=== PATIENT | female | born 1995 | race Caucasian/White ===

== ENCOUNTER 2018-12-18 23:28 | Inpatient (IN) | payer MEDICAID ==
[~2018-12-18] VITALS: Ht 172.7 cm; Wt 113.9 kg
--- NOTE | 2018-12-18 23:40 | NUR ---
ANTHONY LARKIN presented to unit via wheelchiar from ED, accompanied by family, with c/o FLUID LEAKAGE. ANTHONY LARKIN weighed, gowned, voided, and to bed. EFHM and TOCO applied, VS taken. ANTHONY LARKIN oriented to bed controls, call light, TV, heat, and A/C controls.
[2018-12-18 23:53] VITALS: BP 119/71
--- NOTE | 2018-12-18 23:53 | NUR ---
Pt arrived on unit with c/o SROM, SVE 4 cm 60% no change from office. Positive amnio test noted and head well applied. Pt denies pain at this time. Admission questions answered and pt resting on EFM at this time.
[2018-12-19] VITALS (47 sets, daily range): BP systolic 89–135; BP diastolic 41–86
--- NOTE | 2018-12-19 00:02 | NUR ---
This RN called Dr Schaffer to notify of patient arrival and SROM. Notified of sve, fhr variability, pain rating of 0/10 and contraction pattern. New orders for admit received.
[2018-12-19] MEDS ORDERED: OXYTOCIN/NORMAL SALINE 500 ML IV SCH ×2 (00:10→12:30)
[2018-12-19] MEDS ORDERED: MINERAL OIL CONCENTRATE 99.9% 15 ML UDC TOP PRN (00:15)
[2018-12-19 01:11] LABS: BASOPHILS % (AUTO) 0 % (0-10); EOSINOPHILS % (AUTO) 0 % (0-10); HEMATOCRIT 33 % (35-52); HEMOGLOBIN 10.8 G/DL (11.5-16.0); LYMPHOCYTES # (AUTO) 2.5 X 10^3 (1.0-4.0); LYMPHOCYTES % (AUTO) 25 % (12-44); MEAN CORPUSCULAR HEMOGLOBIN 28 PG (25-34); MEAN CORPUSCULAR HGB CONC 33 G/DL (32-36); MEAN CORPUSCULAR VOLUME 86 FL (80-99); MEAN PLATELET VOLUME 12.5 FL (7.4-10.4); MONOCYTES # (AUTO) 0.7 X 10^3 (0.0-1.0); MONOCYTES % (AUTO) 7 % (0-12); NEUTROPHILS # (AUTO) 6.8 X 10^3 (1.8-7.8); NEUTROPHILS % (AUTO) 68 % (42-75); PLATELET COUNT 223 10^3/uL (130-400); RED CELL DISTRIBUTION WIDTH 15.6 % (10.0-14.5); WHITE BLOOD COUNT 9.9 10^3/uL (4.3-11.0)
[2018-12-19] MEDS: D5 LR IV SOLUTION 1,000 ML IV SCH ×2 (02:25→12:00)
[2018-12-19] MEDS ORDERED: SERT100T8 PO (02:26)
[2018-12-19] MEDS ORDERED: PREN1TAB79 PO (02:26)
--- OUTSIDE RECORDS SUMMARY | 2018-12-19 02:43 | XMS REPORT | Continuity of Care Document ---
Author Author [facility] Address Unknown Phone Unavailable Allergies There is no data. Medications Medication Packaging Start Date Stop Date Route Dosage Sig RHO D IMMUNE GLOBULIN 1500 UNIT/2ML IJ SOSY 09/30/2015 Intramuscular 300 ONCE OXYTOCIN 30 UNITS IN LR 1000 ML OMNICELL 12/27/2015 Intravenous 30 CONTINUOUS PRN TERBUTALINE SULFATE 1 MG/ML IJ SOLN 12/27/2015 Subcutaneous 0.25 ONCE PRN ALUM T MAG HYDROXIDE-SIMETH 200-200-20 MG/5ML PO SUSP 12/27/2015 Oral 30 EVERY 4 HOURS PRN ENEMA 7-19 GM/118ML RE ENEM 12/26 Rectal ONCE PRN LACTATED RINGERS IV BOLUS 201512/27/2015 Intravenous 500 BOLUS NALOXONE HCL 0.4 MG/ML IJ SOLN Intravenous 0.1 PRN METOCLOPRAMIDE HCL 5 MG/ML IJ SOLN 12/27/2015 Intravenous 10 EVERY 3 HOURS PRN PROMETHAZINE HCL 25 MG RE SUPP Rectal 25 EVERY 6 HOURS PRN DIPHENHYDRAMINE HCL 50 MG/ML IJ SOLN 12/27/2015 Intravenous 25 EVERY 6 HOURS PRN DIPHENHYDRAMINE HCL 25 MG PO CAPS 12/27/2015 Oral 25 EVERY 6 HOURS PRN BUPIVACAINE HCL (PF) 0.25 % IJ SOLN 12/27/2015 Epidural PRN BUPIVACAINE HCL (PF) 0.25 % IJ SOLN 12/27/2015 Epidural PRN ACETAMINOPHEN 325 MG PO TABS 04/2016 Oral 650 EVERY 4 HOURS PRN DIPHENHYDRAMINE HCL 25 MG PO CAPS 12/27/2015 Oral 25 EVERY 6 HOURS PRN OXYTOCIN 30 UNITS IN LR 1000 ML OMNICELL 12/27/[address] MITCHELL NIPPLE OINTMENT 2015 Topical PRN LANOLIN EX OINT 12/27/2015 Topical PRN HEMORRHOIDAL HYGIENE 50 % EX PAD 12/27/2015 Topical PRN MISOPROSTOL 200 MCG PO TABS 12/26 Rectal 400 ONCE PRN PRAMOXINE HCL 1 % RE FOAM 2015 Rectal 1 EVERY 6 HOURS PRN ENEMA 7-19 GM/118ML RE ENEM 12/26 Rectal DAILY PRN ONDANSETRON HCL 4 MG/2ML IJ SOLN 12/27/2015 Intravenous 4 EVERY 6 HOURS PRN HYDROCORTISONE ACETATE 25 MG RE SUPP 12/27/2015 Rectal 25 EVERY 6 HOURS PRN IBUPROFEN 400 MG PO TABS 2015 Oral 400 EVERY 4 HOURS PRN ONDANSETRON 4 MG PO TBDP 2015 Oral 4 EVERY 6 HOURS PRN MAGNESIUM HYDROXIDE 400 MG/5ML PO SUSP 12/27/2015 Oral 30 DAILY PRN PRAMOXINE-HC 1-1 % EX FOAM 2015 Topical PRN PLUS 27-1 MG PO TABS 04/2016 Oral 1 DAILY FERROUS SULFATE 325 (65 FE) MG PO TABS 12/27/2015 Oral 325 2 TIMES DAILY WITH MEALS DOCUSATE SODIUM 100 MG PO CAPS Oral 100 2 TIMES DAILY Problems Date Dx Coded Attending Type Code Diagnosis Diagnosed By 08/24/2015 V 441 Routine OB SURAJ KAYE 08/24/2015 V Z34.92 Encounter for supervision of normal , unspecified, second trimester SURAJ KAYE 09/15/2015 SURAJ KAYE V 441 Routine OB SURAJ KAYE 09/30/2015 SURAJ KAYE V 441 Routine OB MIKKI, SURAJ 10/29/2015 SURAJ KAYE V 441 Routine OB SURAJ KAYE 11/11/2015 V O36.0131 Maternal care for anti-d (rh) antibodies, third trimester, fetus 1 11/11/2015 V Z34.93 Encounter for supervision of normal , unspecified, third trimester 11/11/2015 V V22.2 state , incidental 11/11/2015 V V22.2 state , incidental 11/11/2015 V V22.1 Supervision of other normal 12/01/2015 V O36.5930 Maternal care for other known or suspected poor growth, third trimester, not applicable or unspecified 12/29/2015 SURAJ KAYE V [id number] Contractions SURAJ KAYE 12/29/2015 SURAJ KAYE V [id number] Rupture of Membranes SURAJ KAYE 12/29/2015 SURAJ KAYE P [id number] Reserved for concepts with insufficient information to code with codable children KAYE, SURAJ 12/29/2015 SURAJ KAYE V Z33.1 state, incidental SURAJ KAYE 07/14/2016 V V22.1 Supervision of other normal Procedures Code Description Performed By Performed On [id number] INFLUENZA IIV4 PFREE 08/24/2015 [id number] GEST. GLUCOSE SCREEN 11/11/2015 VTR762 ANTIBODY SCREEN 11/11/2015 VUJ533 CBC WITHOUT DIFFERENTIAL 11/11/2015 [id number] PAP, LIQUID-BASED 11/11/2015 TNQ6099 NEISSERIA GONORRHOEAE AMPLIFIED PROBE 11/11/2015 AUC8063 PROFILE-WITH HEPATITIS 11/11/2015 ENI5049 TYPE AND SCREEN 11/11/2015 TTA141 URINE CULTURE 11/11/2015 YYN299 CHLAMYDIA TRACHOMATIS AMPLIFIED PROBE 11/11/2015 IMU740 HIV-1 AND HIV-2 ANTIBODIES 11/11/2015 LAB82 GLUCOSE, RANDOM 11/11/2015 MVK1247 ALPHA-FETOPROTEIN TETRA PROFILE 11/11/2015 [id number] ALPHA-FETOPROTEIN TETRA PROFILE 07/14/2016 QUH8659 PAP, LIQUID-BASED 07/14/2016 PAY3879 NEISSERIA GONORRHOEAE AMPLIFIED PROBE 07/14/2016 [id number] PROFILE-WITH HEPATITIS 07/14/2016 DZM2436 TYPE AND SCREEN 07/14/2016 UNN415 URINE CULTURE 07/14/2016 RDB479 CHLAMYDIA TRACHOMATIS AMPLIFIED PROBE 07/14/2016 FHK573 HIV-1 AND HIV-2 ANTIBODIES 07/14/2016 LAB82 GLUCOSE, RANDOM 07/14/2016 [id number] ALPHA-FETOPROTEIN TETRA PROFILE 07/14/2016 Results Test Result Range CBC WITHOUT DIFFERENTIAL - 09/30/15 11:21 HEMATOCRIT 38.9 % 34.9-44.5 HEMOGLOBIN 12.8 g/dL 12.0-15.5 MEAN CORPUSCULAR HEMOGLOBIN 29.4 pg 26.0-34.0 MEAN CORPUSCULAR HEMOGLOBIN CONC 32.8 g/dL 31.0-37.0 MEAN CORPUSCULAR VOLUME 89.8 fL 81.6-98.3 PLATELET COUNT 270 10E9/L 150-450 RED BLOOD CELL COUNT 4.34 10E12/L 3.90-5.03 RED CELL DISTRIBUTION WIDTH 14.7 % 11.9-15.5 [id number] 12.9 10E9/L 3.5-10.5 GEST. GLUCOSE SCREEN - 09/30/15 11:21 GEST. GLUCOSE SCREEN 54 mg/dL <=139 ANTIBODY SCREEN - 09/30/15 11:21 ANTIBODY SCREEN NEG GROUP B BETA STREP SCREEN - 11/26/15 11:25 [id number] Negative CBC WITHOUT DIFFERENTIAL - 12/27/15 04:55 HEMATOCRIT 36.5 % 34.9-44.5 HEMOGLOBIN 12.0 g/dL 12.0-15.5 MEAN CORPUSCULAR HEMOGLOBIN 28.9 pg 26.0-34.0 MEAN CORPUSCULAR HEMOGLOBIN CONC 32.8 g/dL 31.0-37.0 MEAN CORPUSCULAR VOLUME 88.1 fL 81.6-98.3 PLATELET COUNT 225 10E9/L 150-450 RED BLOOD CELL COUNT 4.14 10E12/L 3.90-5.03 RED CELL DISTRIBUTION WIDTH 15.0 % 11.9-15.5 [id number] 11.7 10E9/L 3.5-10.5 ABO/RH - 12/27/15 04:55 ABORH A NEG RHOPHYLAC IV - VIAL ONLY, 1500IU - 12/27/15 20:48 RHOPHYLAC IV - VIAL ONLY, 1500IU [id number] 10/28/17 issued 1 VIAL 12/27/15 22:17 Encounters ACCT No. Visit Date/Time Discharge Status Pt. Type Provider Facility Loc./Unit Complaint [id number] 12/27/2015 03:42:00 12/29/2015 19:03:00 DIS Inpatient SURAJ KAYE [facility] [id number] 11/28/2015 07:26:04 Document Registration [id number] 09/30/2015 15:36:39 Document Registration [id number] 09/30/2015 11:37:42 Document Registration [id number] 06/24/2015 07:51:29 Document Registration [id number] 12/17/2018 11:15:00 [facility] [id number] 12/20/2015 12:43:28 12/20/2015 23:59:59 CLS Out[facility] [id number] 12/20/2015 12:43:09 12/20/2015 23:59:59 CLS Outpatient [place] [facility] [id number] 12/17/2015 09:43:31 12/17/2015 23:59:59 CLS Outpatient SURAJ KAYE [place] [facility] [id number] 12/10/2015 10:26:48 12/10/2015 23:59:59 [facility] Outpatient SURAJ KAYE [place] [facility] [id number] 12/03/2015 09:57:38 12/03/2015 23:59:59 [facility] Outpatient FAY SINGH [place] [facility] [id number] 11/26/2015 15:23:46 11/26/2015 23:59:59 [facility] Outpatient [place] [facility] [id number] 11/26/2015 10:55:13 11/26/2015 23:59:59 [facility] Outpatient SURAJ KAYE [place] [facility] [id number] 11/26/2015 10:54:51 11/26/2015 23:59:59 [facility] Outpatient [place] [facility] [id number] 11/12/2015 09:57:42 11/12/2015 23:59:59 [facility] Outpatient SURAJ KAYE [place] [facility] [id number] 10/29/2015 10:43:52 10/29/2015 23:59:59 [facility] Outpatient SURAJ KAYE [place] [facility] [id number] 09/30/2015 10:14:37 09/30/2015 23:59:59 CLS Outpatient [place] [facility] [id number] 09/30/2015 10:13:11 09/30/2015 23:59:59 [facility] Outpatient SURAJ KAYE [place] [facility] [id number] 09/15/2015 08:18:08 09/15/2015 23:59:59 [facility] Outpatient SURAJ KAYE [place] [facility] [id number] 08/18/2015 09:29:52 Document Registration [id number] 07/21/2015 10:26:23 Document Registration [id number] 06/23/2015 09:48:54 Document Registration
[2018-12-19] MEDS ORDERED: CATHETER FLUSH 10 ML SYR IV SCH ×2 (06:00→14:00)
[2018-12-19] MEDS ORDERED: LACTATED RINGERS 1,000 ML IV ONE ×3 (06:48→08:14)
[2018-12-19] MEDS ORDERED: FLU QUADRIvalent (5+ YOA) 2018-2019 (AFLURIA) 0.5 ML IM ONE (07:00)
--- NOTE | 2018-12-19 07:20 | NUR ---
THIS RN INTRODUCES SELF TO PT AT THIS TIME. PT RATING PAIN 8/10, EPIDURAL LR BOLUS ALREADY STARTED FROM YOU[employer] TEACHER. THIS RN WILL CALL ANESTHESIA FOR EPIDURAL PLACEMENT. CALL LIGHT WITHIN REACH.
[2018-12-19] MEDS ORDERED: SUFENTA 0.6MCG/ML BUPIVA 0.125 100 ML ONE (07:22)
[2018-12-19] MEDS ORDERED: fentaNYL INJECTION 100 MCG/2 ML AMP ONE (07:31)
[2018-12-19] MEDS ORDERED: BUPIVACAINE 0.25% 30 ML (SENSORCAINE) VIAL ONE (07:31)
--- NOTE | 2018-12-19 07:37 | NUR ---
DR AMEZQUITA CALLED FOR UPDATE PT REPORT. THIS RN REPORTS PT RATING PAIN 8/10, ANESTHESIA HERE NOW FOR EPIDURAL PLACEMENT. DR AMEZQUITA WILL HEAD THIS WAY TO HOSP[facility] FROM [place], [facility]. RN REPORTS LATEST SVE BY [employer] MARKET[employer] INTERN AT 0600
[2018-12-19] MEDS ORDERED: LIDOCAINE PF 2% 5 ML (XYLOCAINE) VIAL ONE (07:40)
[2018-12-19] MEDS ORDERED: EPIDURAL (SUFENTA 0.6MCG/ML BUPIVA 0.125%) 100 ML BAG EPI PRN (08:15)
[2018-12-19] MEDS ORDERED: ONDANSETRON 4 MG/2 ML (SDV) Z0FRAN IV PRN (08:15)
[2018-12-19] MEDS ORDERED: NALOXONE 0.4 MG/ML 1 ML (NARCAN) VIAL IV PRN (08:15)
--- NOTE | 2018-12-19 08:23 | History & Physical-OB ---
OB - Chief Complaint & HPI Date/Time Date of Admission: Date of Admission: Dec 19, 2018 at 00:05 Date seen by a Provider: Dec 19, 2018 Time Seen by a Provider: 08:21 Chief Complaint/History OB-Reason for Admission/Chief: Rupture of Membranes Hx : 2 Hx Para: 1 Expected Date of Delivery: Dec 26, 2018 Gestational Age in Weeks: 39 Gestational Age in Days: 0 Admission Nurse Assessment Rev: Yes Allergies and Home Medications Allergies Coded Allergies: No Known Drug Allergies (Unverified , 12/18/18) Home Medications Vit W-Ca,Fe,FA(<1 mg) 1 Each Tablet, 1 EACH PO DAILY, (Reported) Sertraline HCl 100 Mg Tablet, 100 MG PO DAILY, (Reported) Patient Home Medication List Home Medication List Reviewed: Yes OB - History Hx of Present Care: Yes Ultrasounds: Normal mid trimester US Obstetrical Complications: None Medical Complications: None Patient Past Medical History none Social History/Family History Alcohol Use: Denies Use Recreational Drug Use: No OB - Admission Exam Physical Exam Vitals: Vital Signs 12/19/18 12/19/18 05:15 07:00 Temp 97.6 Pulse 80 Resp 18 B/P (MAP) 115/79 (91) O2 Delivery Room Air HEENT: NCAT Heart: Rhythm Normal Lungs: Clear Abdomen: Gravid Extremities: Normal Cervical Dilatation: 8cm Effacement: 100% Station: -2 Membranes: Ruptured Amniotic Fluid: Clear Heart Rate: 130's Accelerations: Accelerations Present Decelerations: Variable Decelerations Short Term Variability: Present Degreasing Solution Reclaimer Variability: Average (6-25) Contractions on Admission: < 5 Minutes Apart Intensity: Moderate Labs Laboratory Tests Test 12/19/18 01:03 Range/Units White Blood Count 9.9 4.3-11.0 10^3/uL Red Blood Count 3.80 L 4.35-5.85 10^6/uL Hemoglobin 10.8 L 11.5-16.0 G/DL Hematocrit 33 L 35-52 % Mean Corpuscular Volume 86 80-99 FL Mean Corpuscular Hemoglobin 28 25-34 PG Mean Corpuscular Hemoglobin Concent 33 32-36 G/DL Red Cell Distribution Width 15.6 H 10.0-14.5 % Platelet Count 223 130-400 10^3/uL Mean Platelet Volume 12.5 H 7.4-10.4 FL Neutrophils (%) (Auto) 68 42-75 % Lymphocytes (%) (Auto) 25 12-44 % Monocytes (%) (Auto) 7 0-12 % Eosinophils (%) (Auto) 0 0-10 % Basophils (%) (Auto) 0 0-10 % Neutrophils # (Auto) 6.8 1.8-7.8 X 10^3 Lymphocytes # (Auto) 2.5 1.0-4.0 X 10^3 Monocytes # (Auto) 0.7 0.0-1.0 X 10^3 Eosinophils # (Auto) 0.0 0.0-0.3 10^3/uL Basophils # (Auto) 0.0 0.0-0.1 10^3/uL OB - Assessment/Plan/Diagnosis Assessment Assessment: active labor Admission Dx Normal labor Admission Status: Inpatient Order (span 2 midnights) Reason for Inpatient Admission: Normal labor Plan Plan: Expectant Management Induction Method: per Pitocin Protocol Copy Copies To 1: LAWRENCE AMEZQUITA MD, KATRINA M MD Dec 19, 2018 08:23
--- NOTE | 2018-12-19 11:15 | NUR ---
1101 HEAD DELIVERY 1102 SPONTANEOUS VAGINAL DELIVERY OF 39WK FEMALE BY DR AMEZQUITA. NO LACERATIONS. 1103: CORD CLAMPED AND CUT 1107: PLACENTA SPONTANEOUSLY DELIVERED 1115: RECOVERY PERIOD BEGINS. VSS. FUNDUS FIRM, MIDLINE, LEVEL WITH UMBILICUS, LIGHT BLEEDING. PT DENIES PAIN OR NEEDS AT THIS TIME. CALL LIGHT WITHIN REACH. 1130: VSS. FUNDUS FIRM, MIDLINE, LEVEL WITH UMBILICUS, LIGHT BLEEDING. PT DENIES PAIN OR NEEDS AT THIS TIME. FAMILY AT BEDSIDE. PT . CALL LIGHT WITHIN REACH. 1145: VSS. FUNDUS FIRM, MIDLINE, LEVEL WITH UMBILICUS, LIGHT BLEEDING. PT DENIES PAIN OR NEEDS AT THIS TIME. PT . FAMILY AT BEDSIDE. CALL LIGHT WITHIN REACH. 1200: VSS. FUNDUS FIRM, MIDLINE, LEVEL WITH UMBILICUS, LIGHT BLEEDING. FAMILY AND VISITORS AT BEDSIDE. PT DENIES PAIN OR NEEDS AT THIS TIME. CALL LIGHT WITHIN REACH. 1215: VSS. FUNDUS FIRM, MIDLINE, LEVEL WITH UMBILICUS, LIGHT BLEEDING. FAMILY AND VISITORS AT BEDSIDE. PT DENIES PAIN OR NEEDS AT THIS TIME. CALL LIGHT WITHIN REACH. RECOVERY PERIOD ENDS. PT STILL UNABLE TO SHOE CLEANER/ FEEL RIGHT LEG. PT WILL REMAIN IN DELIVERY ROOM UNTIL ABLE TO FEEL RIGHT LEG AND LIFT OFF OF THE BED WITHOUT DIFFICULTY. PERICARE BY THIS RN.
--- NOTE | 2018-12-19 11:22 | OB Labor & Delivery Record ---
Vag Delivery Note Vag Delivery Note Date of Delivery: 12/19/18 Preoperative Diagnosis: Germania Horne is a (23 /Para 2 / 1,Gestational Age (wks)39with [SROM] Postoperative Diagnosis: Same Surgeon: LAWRENCE AMEZQUITA Traffic Control Signaler: [none] Anesthesia: [epidural] Delivery Type: [] Findings: [] Viable [female] infant, apgars [], weight [] Lacerations: Intact placenta with 3 vessel cord. No nuchal cord, body cord or shoulder dystocia Estimated Blood Loss: [250] ml Complications: None Condition: Stable Description of Procedure: The patient is a 23 year old female who presented [with SROM]. She was admitted and informed consent was obtained. Her labor course was remarkable for [ augmentation with pitocin] She progressed to complete dilatation and began to push. She was then set up for delivery. The 's head was delivered atraumatically in the [OA] position. The shoulders and remainder of the infant' s body were then delivered without difficulty. Upon delivery, the head was held below the level of the perineum and the mouth and nares were bulb suctioned. The cord was doubly clamped and cut after 60 seconds and placed on maternal abdomen. An intact placenta with 3-vessel cord delivered via [place] and there was found to be minimal bleeding.~ Vigorous fundal massage was performed and the fundus was found to be firm. IV oxytocin was given. Examination of the vagina and perineum revealed no lacerations. Following the repair, sponge, instrument and needle counts were correct. Mom and baby were both in stable condition in the labor suite. Vitals - Labs Vital Signs - I&O Vital Signs Date Time Temp Pulse Resp B/P (MAP) Pulse Ox O2 Delivery O2 Flow Rate FiO2 12/19/18 10:30 86 122/63 (82) Room Air 12/19/18 10:15 74 112/60 (77) Room Air 12/19/18 10:00 73 128/58 (81) Room Air 12/19/18 09:45 98.4 71 89/41 (57) Room Air 12/19/18 09:30 78 96/46 (63) Room Air 12/19/18 09:15 80 94/44 (61) Room Air 12/19/18 09:00 108 18 120/58 (78) 100 Room Air 12/19/18 08:45 98.2 90 118/69 (85) 100 Room Air 12/19/18 08:30 94 132/60 (84) 100 Room Air 12/19/18 08:15 83 121/65 (83) 100 Room Air 12/19/18 08:00 82 130/73 (92) 100 Room Air 12/19/18 07:45 71 132/79 (96) 100 Room Air 12/19/18 07:30 98.0 68 20 119/70 (86) Room Air 12/19/18 07:00 80 18 115/79 (91) Room Air 12/19/18 06:45 65 18 121/81 (94) Room Air 12/19/18 06:30 62 18 121/86 (98) Room Air 12/19/18 06:15 85 18 119/72 (88) Room Air 12/19/18 06:00 73 18 119/65 (83) Room Air 12/19/18 05:45 69 18 111/70 (84) Room Air 12/19/18 05:30 77 18 124/82 (96) Room Air 12/19/18 05:15 97.6 88 18 120/75 (90) Room Air 12/19/18 05:00 81 18 116/62 (80) Room Air 12/19/18 04:45 77 18 117/64 (81) Room Air 12/19/18 04:30 68 18 119/75 (90) Room Air 12/19/18 04:15 78 18 118/54 (75) Room Air 12/19/18 04:00 77 18 111/56 (74) Room Air 12/19/18 03:45 86 18 110/61 (77) Room Air 12/19/18 03:30 91 18 115/64 (81) Room Air 12/19/18 03:15 70 18 114/65 (81) Room Air 12/19/18 03:00 71 18 118/72 (87) Room Air 12/19/18 02:45 71 18 122/75 (91) Room Air 12/19/18 02:30 97.4 78 18 121/72 (88) Room Air 12/18/18 23:53 98.1 93 18 119/71 (87) Labs Laboratory Tests 12/19/18 01:03: White Blood Count 9.9, Red Blood Count 3.80L, Hemoglobin 10.8L, Hematocrit 33L, Mean Corpuscular Volume 86, Mean Corpuscular Hemoglobin 28, Mean Corpuscular Hemoglobin Concent 33, Red Cell Distribution Width 15.6H, Platelet Count 223, Mean Platelet Volume 12.5H, Neutrophils (%) (Auto) 68, Lymphocytes (%) (Auto) 25 , Monocytes (%) (Auto) 7, Eosinophils (%) (Auto) 0, Basophils (%) (Auto) 0, Neutrophils # (Auto) 6.8, Lymphocytes # (Auto) 2.5, Monocytes # (Auto) 0.7, Eosinophils # (Auto) 0.0, Basophils # (Auto) 0.0 LAWRENCE AMEZQUITA MD Dec 19, 2018 11:22
[2018-12-19] MEDS ORDERED: WITCH HAZEL(TUCKS) 40 EA JAR TOP PRN (12:30)
[2018-12-19] MEDS ORDERED: BENZOCAINE/MENTHOL (DERMOPLAST) 56 ML CAN TP PRN (12:30)
[2018-12-19] MEDS ORDERED: TETANUS,DIPTH,PERTUSS P/F (BOOSTRIX) 0.5 ML VIAL IM ONE (12:30)
[2018-12-19] MEDS ORDERED: MEASLES,MUMPS,RUBELLA 1 EA INJ SQ ONE (12:30)
[2018-12-19] MEDS: IBUPROFEN 600 MG (MOTRIN) TAB PO SCH ×2 (12:43→18:33)
--- NOTE | 2018-12-19 16:07 | NUR ---
PT IN BED, VOICES THAT SHE'S TIRED. VS OBTAINED. NO NEEDS VOICED, PLANNING TO LET PT REST. CALL LIGHT WITHIN REACH.
--- NOTE | 2018-12-19 18:33 | NUR ---
PT IN BED. VISITORS TO BEDSIDE. ROUTINE MOTRIN GIVEN PO; SEE EMAR FOR FURTHER. FRESH ICE WATER PROVIDED. PT DENIES ANY NEEDS AT THIS TIME.
[2018-12-20] MEDS: IBUPROFEN 600 MG (MOTRIN) TAB PO SCH ×3 (00:29→12:24)
[2018-12-20 02:00] VITALS: BP 119/56
[2018-12-20 05:39] VITALS: BP 128/70
[2018-12-20 06:40] LABS: BASOPHILS % (AUTO) 0 % (0-10); EOSINOPHILS # (AUTO) 0.1 10^3/uL (0.0-0.3); EOSINOPHILS % (AUTO) 1 % (0-10); HEMATOCRIT 32 % (35-52); LYMPHOCYTES # (AUTO) 2.2 X 10^3 (1.0-4.0); LYMPHOCYTES % (AUTO) 23 % (12-44); MEAN CORPUSCULAR HEMOGLOBIN 28 PG (25-34); MEAN CORPUSCULAR HGB CONC 32 G/DL (32-36); MEAN CORPUSCULAR VOLUME 89 FL (80-99); MONOCYTES # (AUTO) 0.6 X 10^3 (0.0-1.0); MONOCYTES % (AUTO) 7 % (0-12); NEUTROPHILS # (AUTO) 6.6 X 10^3 (1.8-7.8); NEUTROPHILS % (AUTO) 69 % (42-75); PLATELET COUNT 184 10^3/uL (130-400); RED CELL DISTRIBUTION WIDTH 15.5 % (10.0-14.5); WHITE BLOOD COUNT 9.5 10^3/uL (4.3-11.0)
--- NOTE | 2018-12-20 07:48 | Anesthesia-Regional Post-Op ---
Regional Patient Condition Mental Status: Alert, Oriented x3 Circulation: Same as Pre-Op Headache: Absent Sensation: Full Recovery Motor Block: Absent Post Op Complications Complications None Follow Up Care/Instructions Patient Instructions None needed. Anesthesia/Patient Condition Patient is doing well, no complaints, stable vital signs, no apparent adverse anesthesia problems. No complications reported per nursing. MARGAUX MOCTEZUMA CRNA Dec 20, 2018 07:48
--- NOTE | 2018-12-20 08:30 | NUR ---
PT HOLDING INFANT, UP IN ROOM. DENIES ANY NEEDS AT THIS TIME. WILL RETURN LATER FOR ASSESSMENT.
--- NOTE | 2018-12-20 09:10 | NUR ---
DR. CRUMP TO PT'S BEDSIDE.
--- NOTE | 2018-12-20 09:27 | NUR ---
PT IN BED, APPLYING LOTION TO INFANT IN ATTEMPT TO WAKE UP TO FEED. CONTINUES TO DENY ANY NEEDS. POC DISCUSSED WITH PT AND S/O; UNDERSTANDING VERBALIZED. CALL LIGHT WITHIN REACH.
--- NOTE | 2018-12-20 11:33 | NUR ---
PT IN THE CHAIR, HOLDING . FAMILY AT THE BEDSIDE. DENIES ANY NEEDS AT THIS TIME.
[2018-12-20] MEDS ORDERED: IBUP-844 PO (11:48)
--- NOTE | 2018-12-20 11:49 | Discharge Instructions ---
Discharge Inst-Women's Serv Depart Medications New, Converted or Re-Newed RX: Other (may take over the counter) New Medications: Ibuprofen (Ibu) 600 Mg Tablet 600 MG PO Q6H PRN for CRAMPS, #90 TAB 0 Refills Continued Medications: Vit W-Ca,Fe,FA(<1 mg) ( Vitamins) 1 Each Tablet 1 EACH PO DAILY, TAB Sertraline HCl (Sertraline HCl) 100 Mg Tablet 100 MG PO DAILY, TAB Follow Up/Instructions Goal/Follow Up: Follow up with Dr. Amezquita in 6 weeks. Activity Activity: Activity as Tolerated Driving Instructions: You May Drive Nothing Inside Vagina: No Douching, No [place], No Tampons Diet Discharge Diet: No Restrictions Symptoms to Report to : Bleeding Excessive, Pain Increased, Fever Over 101 Degrees F, Vaginal Bleeding Increase, Vaginal Discharge Foul, Questions/Concerns , Shortness of Breath For Any Problems or Questions: Contact Your Physician Copies To 1: LAWRENCE AMEZQUITA MD, LINDA K DO Dec 20, 2018 11:47
--- NOTE | 2018-12-20 11:52 | Discharge Summary ---
Diagnosis/Chief Complaint Date of Admission Dec 19, 2018 at 00:05 Date of Discharge Dec 20, 2018 Admission Diagnosis Admission Diagnosis 39 week SROM, CARMINA Discharge Diagnosis s/p at 39 wk Discharge Summary-OBS Procedures None. Discharge Physical Examination Allergies: Coded Allergies: No Known Drug Allergies (Unverified , 12/18/18) Vitals & I&Os Intake and Output 12/19/18 23:59 Intake Total 1000 ml Balance 1000 ml Vital Sign - Last 12Hours Date Time Temp Pulse Resp B/P (MAP) Pulse Ox O2 Delivery O2 Flow Rate FiO2 12/20/18 05:39 97.6 76 18 128/70 (89) 98 Room Air General Appearance: Alert, Oriented X3, Cooperative Abdominal: No Tenderness, Other (uterus firm) Psych/Mental Status: Mood NL Hospital Course Routine care. Labs Laboratory Tests 12/20/18 06:30: White Blood Count 9.5, Red Blood Count 3.56L, Hemoglobin 10.0L, Hematocrit 32L, Mean Corpuscular Volume 89, Mean Corpuscular Hemoglobin 28, Mean Corpuscular Hemoglobin Concent 32, Red Cell Distribution Width 15.5H, Platelet Count 184, Mean Platelet Volume 12.0H, Neutrophils (%) (Auto) 69, Lymphocytes (%) (Auto) 23 , Monocytes (%) (Auto) 7, Eosinophils (%) (Auto) 1, Basophils (%) (Auto) 0, Neutrophils # (Auto) 6.6, Lymphocytes # (Auto) 2.2, Monocytes # (Auto) 0.6, Eosinophils # (Auto) 0.1, Basophils # (Auto) 0.0 Discharge Instructions to patient/family Please see electronic discharge instructions given to patient. Discharge Medications Reviewed and agree with Discharge Medication list on patient's Discharge Instruction sheet Clinical Quality Measures DVT/VTE Risk/Contraindication: Risk Factor Score Per Nursin RFS Level Per Nursing on Admit: 2=Moderate Copy Copies To 1: LAWRENCE AMEZQUITA MD, LINDA K DO Dec 20, 2018 11:52
[2018-12-20 12:26] VITALS: BP 118/78
--- NOTE | 2018-12-20 12:35 | NUR ---
PT IN BED, PACKING BAGS. VS OBTAINED. ROUTINE MOTRIN GIVEN PO; SEE EMAR. RHOGAM GIVEN IM; SEE INTERVENTION. INITIAL SHIFT ASSESSMENT COMPLETED; SEE INTERVENTION FOR FURTHER. PT DENIES ANY NEEDS AT THIS TIME.
--- NOTE | 2018-12-20 13:12 | NUR ---
DISCHARGE PAPERS PROVIDED AND REVIEWED WITH PT, PT VERBALIZES UNDERSTANDING AND DENIES ANY QUESTIONS AT THIS TIME. PAPER SIGNED.
--- NOTE | 2018-12-20 14:53 | NUR ---
PT AT THIS TIME.
--- NOTE | 2018-12-20 15:35 | NUR ---
PT DISCHARGED FROM -309 TO PERSONAL AUTO VIA AMBULATORY IN STABLE CONDITION ACC BY THIS RN AND FAMILY. BELONGINGS IN HAND.
== END 2018-12-20 15:35 | disposition home or self-care (01) | DRG 807 ==
LOC: WSo 23:28 → LDRP 23:29 → WSo 12-19 00:05 → LDRP 12-19 00:05
PROVIDERS: ADMIT Family Medicine; ATTEND Family Medicine
PROC: 10E0XZZ Delivery of Products of Conception, External Approach (ICD-10-PCS; principal; 2018-12-19)
DX: O80 Encounter for full-term uncomplicated delivery (principal); Z3A.39 39 weeks gestation of pregnancy; Z37.0 Single live birth; Z87.891 Personal history of nicotine dependence
CPT/HCPCS: 36415; 83033; 85025; 86850; 86900; 86901; 99212